=== PATIENT | male | born 1950 | race Caucasian/White ===

== ENCOUNTER → 2016-09-07 | Outpatient (CLI) | payer BC ==
[2015-12-02 14:49] VITALS: BP 195/118
[~2016-09-07] MED LIST: CALC300T5 PO; MULT-245 PO
== END | disposition home or self-care (01) ==
LOC: SPEC 11:45
PROVIDERS: ATTEND Podiatrist Foot & Ankle Surgery
DX: E08.42 Diabetes mellitus due to underlying condition with diabetic polyneuropathy (principal)
CPT/HCPCS: 87071; 87075; 87205